=== PATIENT | female | born 1995 | race Caucasian/White ===

== ENCOUNTER 2021-01-19 13:54 | Outpatient (CLI) | payer OTHER ==
[2021-01-19 14:53] VITALS: BP 98/65
--- NOTE | 2021-01-19 14:53 | SLEEP CARE CONSULTATION ---
Information from patient questionnaire entered by Jose Ramon Cabral. I have reviewed and concur with the information entered by Jose Ramon Cabral. This document represents the service I personally performed and the decisions made by me, Tawanna Burgess ARNP. History of Present Illness Service Date and Time: 01/19/2021 1354 Reason for Visit: New patient Chief Complaint: reports: Unrefreshed sleep, Snoring (occasionally), Excessive daytime sleepiness, Observed pauses in breathing, Frequent awakenings at night, Other (waking at night for air, exhaustion during day) Date of Onset: After dental treatment for overbite (~2010) Usual bedtime: Around 2300 Time it takes to fall asleep: ~ 15 min Snores at night: Yes Observed to quit breathing while asleep: Yes Sleeps alone due to snoring: Yes (sometimes) Number of times waking at night: At least 2 Reasons for waking at night: reports: Choking, Snoring, Gasping for air Toss, Turn, or Twitch while sleeping: Yes Recalls having dreams: Yes Usually gets out of bed at: Around 0700 Feels refreshed in the morning: No Morning headache: Yes (4 days a well, dull constant that last couple hours) Sleepy or fatigued during the day: Yes Ever fallen asleep while driving: No Takes day naps: Yes (mostly on weekends) Dreams during day naps: No Prior sleep studies: No Additional HPI information: I had the pleasure of seeing NAUN CARTER today regarding the possibility of her having a sleep disorder. Her current complaints are observed pauses in breathing, waking at night for air and exhaustion during the day. She had some dental work when younger that reduced an overbite and since then she has problems with waking up gasping for air and having daily tiredness. She feels in the last 2 years things have become worse. Her concentration and memory is now being affected. She does not ever feel rested or wake up feeling rested after sleeping. She feels she is waking up frequently at night. Her states she has pauses in breathing and he hears her gasp and choke while she is sleeping. He father has sleep apnea and is treated with a machine. He has told her how much difference it has made for him. She is in the [employer] and does not want it to affect her job. 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 Patient is and lives in [place]. Have you smoked in the past 12 months: No Alcohol use: Yes Alcohol amount and frequency: 1-2 drinks monthly Caffeine use: Yes Caffeine amount and frequency: 1 every other day Family History Family history of sleep disordered breathing: Yes (Father, diagnosed and treated with CPAP) Family Hx Sleep Apnea: Father: Sleep apnea - Treated Allergies and Home Medications Drug allergies reviewed: Yes (NKDA) Home medication list reviewed: Yes Allergy and home medication list: Ibuprofen, prn Review of Systems Weight gain over past 5 years: 3 Cardiovascular: reports: palpitations. denies: high blood pressure Gastrointestinal: denies: heartburn Neurological: reports: headaches. denies: seizure, head trauma Psychiatric: denies: anxiety, depression, mood disorder, claustrophobia Ear/Nose/Throat: reports: nasal congestion, tonsillectomy, wisdom teeth removed Immunologic: reports: allergies to food or environment (pet dander) Physical Exam Blood Pressure: 98/65 Cuff size: wrist Heart Rate: 74 O2 Saturation: 99 Height: 5 ft 6.5 in Weight: 134 lb Body Mass Index: 21.3 BMI Classification: Healthy weight Nostrils: patent to airflow Mouth and throat: narrow oropharynx Soft palate: long Hard palate: normal Uvula visualization: 25% Mallampati Class III Tongue: enlarged in size with teeth lynne on lateral edges Tonsils: absent bilaterally Chin and jaw: normal size and position Neck: normal w/o lymphadenopathy or thyromegaly Heart: regular rate and rhythm Lungs: clear bilaterally Impression and Plan 1. Suspected Obstructive Sleep Apnea-Hypopnea Syndrome, as suggested by a history of irregular snoring, observed cessation of breath while asleep, gasping or choking in sleep, morning headache, frequent awakening during the night, unrefreshed sleep, cognitive impairment, and excessive daytime sleepiness. Narrow oropharynx and obesity are common predisposing factors for obstructive sleep apnea-hypopnea syndrome. I recommend proceeding to polysomnography to confirm the diagnosis and to assess severity. If the patient has significant sleep disordered breathing, a manual CPAP titration study will also be performed to find the optimal treatment pressure. I informed the patient of what the sleep studies involve and after some discussion, obtained agreement to proceed. The pathophysiology of obstructive sleep apnea-hypopnea syndrome was discussed with the patient and health risks of cardiovascular and cerebrovascular disease if not treated. 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 Patient agreed to plan. * Schedule polysomnography +- manual CPAP titration study and return in 1-2 weeks after the study to discuss result and initiate therapy. * Avoid long distance driving or driving when feeling sleepy. * Avoid alcohol, sedative and muscle relaxant around bedtime. * Attempt to lose weight. * Review instructions provided by trained office staff on how to prepare for the sleep study. * Return for follow-up after sleep study completed. Visit Type: In Office Time Spent with Patient (minutes): 30 Provider Statement: I spent 100% of the Face to Face Visit with the patient with greater than 50% spent counseling the patient and coordination of care.
== END 2021-01-19 13:55 | disposition home or self-care (01) ==
LOC: SC 13:54
PROVIDERS: ATTEND Nurse Practitioner Family
DX: G47.10 Hypersomnia, unspecified (principal); R06.81 Apnea, not elsewhere classified; G47.8 Other sleep disorders; R06.83 Snoring; R41.89 Other symptoms and signs involving cognitive functions and awareness; R51.9 Headache, unspecified
CPT/HCPCS: 99203; 99212

== ENCOUNTER 2021-02-04 08:43 | Outpatient (CLI) | payer OTHER ==
--- NOTE | 2021-02-04 09:22 | SLEEP CARE CONSULTATION ---
Information from patient questionnaire entered by Naun Gordon. I have reviewed and concur with the information entered by Naun Gordon. This document represents the service I personally performed and the decisions made by , Tawanna Burgess ARNP. History of Present Illness Service Date and Time: 02/04/2021 0843 Initial [place]red Sleepiness Scale score: 17 (in 2020) Current [place]red Sleepiness Scale score: 17 Additional HPI information: NAUN CARTER returns with spouse for follow up and results of the recently performed polysomnography. The patient was informed of the following findings: no significant sleep disordered breathing with an average AHI of 0.0 and ernestina of 95%. I explained the pathophysiology behind obstructive sleep apnea. Patient does not have sleep apnea and was advised how weight gain could increase the risk of developing sleep apnea in the future. Patient was cautioned about risks of drowsy driving until sleepiness symptoms resolve. Sleep Study - Results Type of Sleep Study: Polysomnography (from [place]) Prior sleep studies: No Polysomnography/Home Sleep Study results: Interpretation: In-laboratory Attended Nocturnal Polysomnography. The patient had reduced sleep efficiency due sleep onset insomnia. The sleep architecture was normal during the second of half of the night. Respiratory monitoring showed no evidence of sleep-disordered breathing (AHI 0.0) or hypoxia (ernestina oxygen saturation of 95.0%). The patient slept adequately in supine position. No audible snore. There was no periodic leg movement of sleep. Cardiac rhythm was normal sinus rhythm. No abnormal behavior (parasomnia) observed during the night. Recommen ations: 1. This is normal in~laboratory polysomnography. Clinical correlation advised. Allergies and Home Medications Home medication list reviewed: Yes (ibuprofen, as needed) Review of Systems Review of systems same as previous: Yes (no changes) Physical Exam Heart Rate: 103 (nervous today) O2 Saturation: 100 Height: 5 ft 6.5 in Weight: 144 lb Body Mass Index: 22.8 BMI Classification: Healthy weight Impression and Plan 1. Suspected Obstructive Sleep Apnea-Hypopnea Syndrome, as suggested by a history of irregular snoring, observed cessation of breath while asleep, gasping or choking in sleep, frequent awakening during the night, unrefreshed sleep, and excessive daytime sleepiness. Patient here for follow up on PSG but felt she did not sleep well that night and it was not a good measurement of her breathing. She feels it may be a better measurement with a HST. She is concerned that the test was greatly affected by her nervousness and inability to rest comfortably on the night of the PSG. Her father had similar results with his study and on his second test was found to have moderate to severe sleep apnea. I recommend proceeding to polysomnography to confirm the diagnosis and to assess severity with an HST. 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 Patient agreed to plan. * Schedule HST and return in 1-2 weeks after the study to discuss result and initiate therapy. * Avoid long distance driving or driving when feeling sleepy. * Avoid alcohol, sedative and muscle relaxant around bedtime. * Maintain a healthy weight * Review instructions provided by trained office staff on how to prepare for the sleep study. * Return for follow-up after sleep study completed. Counseling Topics: Weight control Visit Type: In Office Other Participants: Spouse/Significant Other Time Spent with Patient (minutes): 21 Provider Statement: I spent 100% of the Face to Face Visit with the patient with greater than 50% spent counseling the patient and coordination of care.
== END 2021-02-04 08:44 | disposition home or self-care (01) ==
LOC: SC 08:43
PROVIDERS: ATTEND Nurse Practitioner Family
DX: G47.10 Hypersomnia, unspecified (principal); R06.81 Apnea, not elsewhere classified; G47.8 Other sleep disorders; R06.83 Snoring
CPT/HCPCS: 99212; 99213

== ENCOUNTER 2021-02-12 14:27 | Outpatient (CLI) | payer OTHER | END 2021-02-12 14:28 | disposition home or self-care (01) | LOC: SC 14:27 | PROVIDERS: ATTEND Nurse Practitioner Family | DX: G47.33 Obstructive sleep apnea (adult) (pediatric) (principal); R09.02 Hypoxemia | CPT/HCPCS: 95806 ==

== ENCOUNTER 2021-02-23 11:16 | Outpatient (CLI) | payer OTHER ==
--- NOTE | 2021-02-23 11:44 | SLEEP CARE CONSULTATION ---
Information from patient questionnaire entered by Brianne Gordon. I have reviewed and concur with the information entered by Brianne Gordon. This document represents the service I personally performed and the decisions made by , Tawanna Burgess ARNP. History of Present Illness Service Date and Time: 02/23/2021 1116 Initial [place] Sleepiness Scale score: 17 (in 2020) Current [place] Sleepiness Scale score: 17 Additional HPI information: BRIANNE CARTER returns with spouse for follow up and results of the recently performed home sleep study. I explained the pathophysiology behind obstructive sleep apnea. We then spent qu ite a bit of time discussing different treatment options. For mild obstructive sleep apnea, surgery and oral appliance are alternatives to nasal CPAP therapy but in moderate or severe cases, nasal CPAP is the most effective and reliable treatment. Because apnea is primarily in supine position, then positional management therapy could be effective. I advised patient to sleep on her side until starting CPAP therapy. I reviewed the impact of weight changes on sleep apnea and strongly recommended losing weight. After some discussion, the patient opted to go with the nasal CPAP therapy. Nasal autoCPAP set at 4-15 cmH20 will be ordered with rationale explained. A manual titration study will be ordered if unable to find optimal pressure with office adjustments. I explained how CPAP machine works with sample devices [id number] Dreamstation and Share Some Style [id number] and what to expect when using the machine. Using CPAP every night in order to get used to it was emphasized. Patient advised to put CPAP mask on before getting into bed so as not to fall asleep without CPAP. To assist acclimation to CPAP use, it could also be used for a short time during day while reading or watching TV. The patient was instructed to call the CPAP supplier to discuss any mechanical problem that may occur. If the mask given is uncomfortable or is difficult to keep on through the night even with adjustment, contact the CPAP supplier as many will replace with another mask style if notified before 30 days. If snoring or perceives is not getting enough air or too much air from the machine, notify this office. AAS patient education PAP tips reviewed and given to patient. Patient does not drink alcohol. Patient was cautioned about risks of drowsy driving until sleepiness symptoms resolve. Maria Antonia ent denies drowsy driving. Sleep Study - Results Type of Sleep Study: Home sleep study Prior sleep studies: Yes Year and Where: 2020 - [facility] (negative) Polysomnography/Home Sleep Study results: The quality of the study is good. The length of the study is adequate (> 240 minutes). Please also see the tabulated and graphic data. 1. Obstructive Sleep Apnea-Hypopnea (ICD-10 G47.33), moderate, with an AHI of 28.9/hr and ernestina SaO2 of 85%. During the study, the patient had 171 apneas (171 obstructive, 0 central, 0 mixed) and 15 hypopneas. The longest episode lasted 102.5 seconds. The respiratory events occurred more frequently during supine sleep (supine AHI was 40.1 and non-supine, 14.30). 2. Hypoxemia (ICD-10 R09.02), mild, with the lowest oxygen saturation of 85 % and 2.9 minutes with SaO2 under 90%. Baseline oxygen saturation was normal (Average oxygen saturation was 95%). Allergies and Home Medications Home medication list reviewed: Yes (no changes) Review of Systems Review of systems same as previous: Yes (no changes) Physical Exam Heart Rate: 99 O2 Saturation: 100 Height: 5 ft 6.5 in Weight: 141 lb Body Mass Index: 22.4 BMI Classification: Healthy weight Impression and Plan 1. Obstructive Sleep Apnea-Hypopnea Syndrome, moderate, with lowest oxygen saturation of 85%. Obviously this is the cause of the patients symptoms of unrefreshed sleep, and excessive daytime sleepiness. Positive pressure therapy could benefit her overall health and reduce cardiovascular and cerebrovascular adverse events. As mentioned above, the patient will be started on nasal autoCPAP therapy with pressure set at 4-15 cmH2O. A manual titration study will be completed if unable to find optimal treatment pressure with office adjustments. Compliance guidelines also reviewed. A copy of compliance guidelines will be given for reference at check out. Because the apnea is more severe supine, I instructed to avoid sleeping supine using pillow positioning until able to start CPAP use. * Nasal auto CPAP therapy, pressure at 4-15 cm H2O. * Attempt to lose weight. * Avoid alcohol consumption near bedtime. * Avoid supine sleep until using CPAP. * The patient is again cautioned about driving until sleepiness completely resolves. * Return one month after CPAP obtained. I will assess response to therapy and compliance at that time. Counseling Topics: Weight control Visit Type: In Office Time Spent with Patient (minutes): 20 Provider Statement: I spent 100% of the Face to Face Visit with the patient with greater than 50% spent counseling the patient and coordination of care.
== END 2021-02-23 11:17 | disposition home or self-care (01) ==
LOC: SC 11:16
PROVIDERS: ATTEND Nurse Practitioner Family
DX: G47.33 Obstructive sleep apnea (adult) (pediatric) (principal)
CPT/HCPCS: 99212; 99213

== ENCOUNTER 2021-04-09 11:50 | Outpatient (CLI) | payer OTHER ==
--- NOTE | 2021-04-09 12:45 | SLEEP CARE CONSULTATION ---
Information from patient questionnaire entered by Naun Gordon. I have reviewed and concur with the information entered by Naun Gordon. This document represents the service I personally performed and the decisions made by , Tawanna Burgess ARNP. History of Present Illness Service Date and Time: 04/09/2021 1150 Previous diagnosis: Moderate, Obstructive Sleep Apnea-Hypopnea Syndrome AHI: 28.9 (in 2020) Reason for follow up: other (issues with CPAP, set up 03/11/2021) Equipment type: CPAP Equipment obtained from: Other ([facility]; got initial supplies) Mask style: Nasal (2 previous types) Mask brand: Respironics (Dreamwear) Backup mask available: Yes (other mask) Prior sleep studies: Yes Year and Where: 2020 - [facility]; 2020 - [facility] (PSG- negative) Type of Sleep Study: Home sleep study HPI additional information: NAUN CARTER was diagnosed to have moderate, AHI 28.9, obstructive sleep apnea-hypopnea syndrome and returned today for CPAP therapy use issues follow- up. CPAP Compliance Data - Data Reviewed with Patient Average duration of nightly device use: 4 hr 27 min Compliance rate %: 60 Current pressure setting (cmH2O): 4-15 (mean 5.0, avg 6.8, peak 9.5) Humidity settin Heated hose settin Average residual AHI: 2.0 Average large leak: 0 Subjective Patient concerns: reports: aerophagia, mask discomfort, condensation in mask/hose, dry mouth, nose, throat. denies: air blowing in eyes, mask leak noise, nasal congestion, epistaxis Current pressure setting perceived as: comfortable On therapy, patient: reports: sleeping better (a little). denies: drowsiness while driving Initial [place] Sleepiness Scale score: 17 (in 2020) Current [place] Sleepiness Scale score: 15 Allergies and Home Medications Home medication list reviewed: Yes (Vitamin supplement) Review of Systems Review of systems same as previous: No (low vit D, TSH is elevated) Physical Exam Heart Rate: 89 O2 Saturation: 98 Height: 5 ft 6.5 in Weight: 141 lb Body Mass Index: 22.4 BMI Classification: Healthy weight Impression and Plan 1. Obstructive Sleep Apnea-Hypopnea Syndrome, moderate, with fair treatment compliance and good apnea control. On CPAP therapy, the patient feels she has a little bit better sleep quality but is not more rested overall. Patient has been having multiple issues with CPAP use. Patient states she has been waking up every 1-3 hours and looking at the clock to see if she is having a time on machine. She is trying to reach 4 to 5 hours of compliance since she needs at least 5 hours for her job. She has also had times where she felt a burst of air that caused her not to be able to breathe after she has put on her mask. She has had some aerophagia in the morning with bloating is uncomfortable. She is also had some difficulty with the mask and has changed it out 2-3 times. She is currently using a nasal cushion by [employer] that she used for 1 night and feels this might be the most comfortable so far. She is also had an issue with feeling like she is getting water boarded with drops of water coming into her nose/on her face. She has since completely turned off the humidity as well as the heated hose. Patient states that despite repeated attempts of adjustments, she was still getting condensation in the mask. I advised patient to look at the clock when she wakes up at night and just try to go back to sleep. With this, we would be trying to development of anxieties and frustrations interrupting her sleep. I will also adjust her pressure to 5 to 7 cmH2O to reduce these bursts of air waking her up and the aerophagia. She was advised to continue to try different mask as needed if the current mask is still not comfortable. She was also advised to see if her rooms ambient humidity may be high causing increased condensation since she does not have her humidity or heated hose on. I also advised her to continue to be patient and try to wear her mask nightly to increase the time in the mask for best benefit. I will follow up with her in about 4 weeks to check her initial compliance and see how she is doing with these changes. Patient's apnea severity and rationale for treatment to reduce apnea, improve sleep quality and reduce cardiovascular and cerebrovascular events was reviewed. * Change auto CPAP pressure to 5-7cmH2O * Notify me if snoring with mask or feeling that the pressure is too much or too little * Maintain a healthy weight * Call this office if any problems using CPAP * Return for follow up in 1 month, or sooner if concerns arise Counseling Topics: Weight loss health impact Visit Type: In Office Time Spent with Patient (minutes): 29 Provider Statement: I spent 100% of the Face to Face Visit with the patient with greater than 50% spent counseling the patient and coordination of care.
== END 2021-04-09 11:51 | disposition home or self-care (01) ==
LOC: SC 11:50
PROVIDERS: ATTEND Nurse Practitioner Family
DX: G47.33 Obstructive sleep apnea (adult) (pediatric) (principal)
CPT/HCPCS: 99212; 99213

== ENCOUNTER 2021-05-06 08:29 | Outpatient (CLI) | payer OTHER ==
--- NOTE | 2021-05-06 09:09 | SLEEP CARE CONSULTATION ---
Information from patient questionnaire entered by Naun Gordon. I have reviewed and concur with the information entered by Naun Gordon. This document represents the service I personally performed and the decisions made by , Tawanna Burgess ARNP. History of Present Illness Service Date and Time: 05/06/2021 0829 Previous diagnosis: Moderate, Obstructive Sleep Apnea-Hypopnea Syndrome AHI: 28.9 (in 2020) Reason for follow up: first compliance Equipment type: CPAP Equipment obtained from: Other ([facility]; got initial supplies) Mask style: Nasal (over the nose) Backup mask available: Yes Last cushion change: 2 weeks Prior sleep studies: Yes Year and Where: 2020 - [facility]; 2020 - [facility] (negative poly) Type of Sleep Study: Home sleep study HPI additional information: NAUN CARTER was diagnosed to have moderate, AHI 28.9, obstructive sleep apnea-hypopnea syndrome and returned today for CPAP therapy first compliance follow-up. CPAP Compliance Data - Data Reviewed with Patient Average duration of nightly device use: 5 hr 21 min Compliance rate %: 73.3 (03/17/21-04/15/21)(last 30 - .7) Current pressure setting (cmH2O): 5-7 Humidity settin Heated hose settin Average residual AHI: 2.6 Average large leak: 4 sec Subjective Missed days of use due to: reports: other (use) Patient concerns: reports: aerophagia, mask discomfort, air blowing in eyes, condensation in mask/hose, dry mouth, nose, throat, other (headache, overall discomfort). denies: mask leak noise, nasal congestion, epistaxis Observed to snore while using device: No On therapy, patient: reports: other (not tolerating CPAP and having to sleep longer without it to feel more rested) Initial Robbins Sleepiness Scale score: 17 (in 2020) Current Robbins Sleepiness Scale score: 17 Allergies and Home Medications Home medication list reviewed: Yes (no changes) Review of Systems Review of systems same as previous: No (Evaluation by ENT for JUAN PABLO surgery) Physical Exam Heart Rate: 95 O2 Saturation: 99 Height: 5 ft 6.5 in Weight: 145 lb Body Mass Index: 23.0 BMI Classification: Healthy weight Impression and Plan 1. Obstructive Sleep Apnea-Hypopnea Syndrome, moderate, with fair treatment compliance and good apnea control. On CPAP therapy, the patient has not been able to sleep better and has been requiring more sleep to try and feel rested. She has tried 4 different masks and although the current one fits the best she is not able to tolerate wearing it. She is waking up, taking it off and going back to sleep for hours to try and catch up on her sleep. She spoke with her flight surgeon who referred her to an ENT for consultation. The ENT specialist is evaluating for possible surgery to treat her sleep apnea. The ENT specialist has told her he is confident that she is a good candidate and has ordered more tests to confirm. Patient would like to continue to pursue the surgical treatment but would like to discontinue the CPAP. I reviewed her sleep study and she was less severe sleeping non-supine. I advised her to avoid sleeping on her back, practicing positional therapy, as she continues to pursue the surgical options. Thus we can control her apneas as much as possible in the meantime. 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 We will discontinue CPAP and patient will do positional therapy to control her apneas as much as possible. She can follow-up here as needed. Patient's apnea severity and rationale for treatment to reduce apnea, improve sleep quality and reduce cardiovascular and cerebrovascular events was reviewed. * Discontinue CPAP * Positional therapy * Follow up with ENT for surgical evaluation * Maintain a healthy weight * Return for follow as needed Counseling Topics: Weight control Visit Type: In Office Time Spent with Patient (minutes): 28 Provider Statement: I spent 100% of the Face to Face Visit with the patient with greater than 50% spent counseling the patient and coordination of care.
== END 2021-05-06 08:30 | disposition home or self-care (01) ==
LOC: SC 08:29
PROVIDERS: ATTEND Nurse Practitioner Family
DX: G47.33 Obstructive sleep apnea (adult) (pediatric) (principal)
CPT/HCPCS: 99212; 99213

== ENCOUNTER 2023-11-10 13:48 | Outpatient (CLI) | payer OTHER | END 2023-11-10 13:49 | disposition home or self-care (01) | LOC: DI 13:48 | PROVIDERS: ATTEND Preventive Medicine Aerospace Medicine | DX: O99.891 Other specified diseases and conditions complicating pregnancy (principal); R00.2 Palpitations; Z3A.10 10 weeks gestation of pregnancy | CPT/HCPCS: 93307 ==

== ENCOUNTER 2023-11-15 20:40 | Emergency (ER) | payer OTHER ==
[2023-11-15 21:52] LABS: BASOPHILS # (AUTO) 0.1 10^3/uL (0.0-0.1); BASOPHILS % (AUTO) 0.7 %; EOSINOPHILS # (AUTO) 0.1 10^3/uL (0.0-0.7); EOSINOPHILS % (AUTO) 1.3 %; HCT - HEMATOCRIT 37.1 % (37.0-47.0); HGB - HEMOGLOBIN 12.4 g/dL (12.0-16.0); LYMPHOCYTES # (AUTO) 1.5 10^3/uL (1.5-3.5); LYMPHOCYTES % (AUTO) 22.5 %; MEAN CORPUSCULAR HEMOGLOBIN 30.2 pg (27.0-31.0); MEAN CORPUSCULAR HGB CONC 33.4 g/dL (32.0-36.0); MEAN CORPUSCULAR VOLUME 90.3 fL (81.0-99.0); MEAN PLATELET VOLUME 9.3 fL (7.9-10.8); MONOCYTES # (AUTO) 0.6 10^3/uL (0.0-1.0); MONOCYTES % (AUTO) 8.7 %; NEUTROPHILS # (AUTO) 4.5 10^3/uL (1.5-6.6); NEUTROPHILS % (AUTO) 66.5 %; PLT - PLATELET COUNT 249 10^3/uL (130-450); RED BLOOD COUNT 4.11 10^6/uL (4.20-5.40); RED CELL DISTRIBUTION WIDTH 12.7 % (12.0-15.0); WHITE BLOOD COUNT 6.8 x10^3/uL (4.8-10.8)
[2023-11-15 22:03] LABS: ALBUMIN 4.5 g/dL (3.2-5.5); ALBUMIN/GLOBULIN RATIO 1.6 (1.0-2.2); BILIRUBIN,TOTAL 0.5 mg/dL (0.2-1.0); CALCIUM 9.1 mg/dL (8.5-10.3); CREATININE 0.5 mg/dL (0.6-1.3); POTASSIUM 3.5 mmol/L (3.5-4.5); TOTAL PROTEIN 7.3 g/dL (6.4-8.9)
[2023-11-15 22:07] VITALS: O2SAT 100
[2023-11-15 22:21] LABS: BILIRUBIN,URINE NEGATIVE (NEGATIVE); GLUCOSE, URINE (UA) NEGATIVE (NEGATIVE); KETONES,URINE (UA) NEGATIVE (NEGATIVE); LEUKOCYTE ESTERASE, URINE NEGATIVE (NEGATIVE); NITRITE,URINE NEGATIVE (NEGATIVE); OCCULT BLOOD,URINE TRACE-LYSE (NEGATIVE); PROTEIN,URINE NEGATIVE (NEGATIVE); UROBILINOGEN,URINE 0.2 (NORMAL) E.U./dL (NORMAL)
[2023-11-15 22:23] LABS: CLARITY,URINE CLEAR (CLEAR); HCG UR QUAL POSITIVE
--- NOTE | 2023-11-15 23:17 | Ultrasound Report ---
PROCEDURE: OB 1st Trimester w/TV INDICATIONS: 10 weeks preg, vag bleed OUTSIDE/PRIOR DATING DATA: Last menstrual period (LMP): 09/04/2023. LMP-based estimated date of delivery (DARIELA): 06/11/2024. First dating scan (date and location): n.a. Estimated date of delivery (DARIELA) from first dating scan: n.a. TECHNIQUE: Real-time scanning was performed of the fetus and maternal pelvic organs, with image documentation. Endovaginal scanning was also performed to better visualize the fetus and maternal ovaries. COMPARISON: None. FINDINGS: Intrauterine gestational sac present. Embryo: There is a pole measuring 2.01 cm, corresponding to ultrasound DARIELA 8 weeks 4 days, dis cordant with clinical dating (10 weeks 2 days). There is absence of heart tone. Other: No perigestational fluid collection. Measurement variability in dating: +/- 4 weeks by LMP, +/- 7 days by mean sac diameter (use before 6 weeks gestation if crown-rump length not able to be measured), +/- 5 days by crown-rump length (6-12 weeks gestation). Maternal organs: Ovaries appear within normal limits. Corpus luteal cysts are noted bilaterally. IMPRESSION: 1. An intrauterine gestational sac is present with a pole. The estimated gestational age is 8 w eeks 4 days. No cardiac activity is present. The ultrasound findings are highly suspicious for first trimester failure. Recommend clinical correlation. Reviewed by: Bradly Gay MD on 11/15/2023 11:16 PM PST Approved by: Bradly Gay MD on 11/15/2023 11:16 PM PST Station ID: [id number]
--- NOTE | 2023-11-15 23:19 | ED Physician Documentation ---
History of Present Illness - Stated complaint Stated Complaint: BLEEDING/10 WEEKS PREG - Chief complaint Chief Complaint: Abd Pain - History obtained from History obtained from: Patient - Additonal information Additional information: 27yF at 10wga presents to the ED with vaginal spotting X 1 day. denies abdominal pain, n/v, urinary sx, vision changes. PD PAST MEDICAL HISTORY - Past Medical History Past Medical History: No Cardiovascular: None Respiratory: None Neuro: None Endocrine/Autoimmune: None GI: None HOSPICE ART THERAPIST: None : None HEENT: None Psych: None Musculoskeletal: None Derm: None - Past Surgical History Past Surgical History: Yes HEENT: Tonsil/Adenoidectomy - Present Medications Home Medications: Ambulatory Orders Medication Instructions Recorded Confirmed No Known Home Medications 11/15/23 11/15/23 - Allergies Allergies/Adverse Reactions: Allergies Allergy/AdvReac Type Severity Reaction Status Date / Time No Known Drug Allergies Allergy Verified 11/15/23 22:02 - Social History Does the pt smoke?: No Smoking Status: Never smoker Does the pt drink ETOH?: No Does the pt have substance abuse?: No - Immunizations Immunizations are current?: Yes - POLST Patient has POLST: No PD ED PE NORMAL - Vitals Vital signs reviewed: Yes - General General: Alert and oriented X 3, No acute distress, Well developed/nourished - HEENT HEENT: Atraumatic, PERRL, EOMI - Neck Neck: Supple, no meningeal sign - Cardiac Cardiac: RRR - Respiratory Respiratory: No respiratory distress, Clear bilaterally - Abdomen Abdomen: Non tender, Non distended - Derm Derm: Normal color, Warm and dry Results - Vitals Vitals: Vital Signs - 24 hr 11/15/23 21:53 Temperature 36.4 C L Heart Rate 76 Respiratory 17 Rate Blood Pressure 119/65 O2 Saturation 100 Oxygen O2 Source Room air - Labs Labs: Laboratory Tests 11/15/23 11/15/23 11/15/23 21:37 21:37 21:37 WBC 6.8 RBC 4.11 L Hgb 12.4 Hct 37.1 MCV 90.3 MCH 30.2 MCHC 33.4 RDW 12.7 Plt Count 249 MPV 9.3 Neut # (Auto) 4.5 Lymph # (Auto) 1.5 Grant # (Auto) 0.6 Eos # (Auto) 0.1 Baso # (Auto) 0.1 Absolute Nucleated RBC 0.00 Nucleated RBC % 0.0 Sodium 136 Potassium 3.5 Chloride 106 Carbon Dioxide 22 Anion Gap 8.0 BUN 6 Creatinine 0.5 L Estimated GFR (MDRD) 146 Glucose 103 Calcium 9.1 Total Bilirubin 0.5 AST 13 ALT 9 L Alkaline Phosphatase 50 Total Protein 7.3 Albumin 4.5 Globulin 2.8 Albumin/Globulin Ratio 1.6 Lipase 16 Beta HCG, Quant 25139.3 Urine Color Urine Clarity Urine pH Ur Specific [place] Urine Protein Urine Glucose (UA) Urine Ketones Urine Occult Blood Urine Nitrite Urine Bilirubin Urine Urobilinogen Ur Leukocyte Esterase Ur Microscopic Review Urine Culture Comments Urine HCG, Qual Blood Type A POSITIVE Blood Type Recheck 11/15/23 11/15/23 11/15/23 22:00 22:00 22:40 WBC RBC Hgb Hct MCV MCH MCHC RDW Plt Count MPV Neut # (Auto) Lymph # (Auto) Grant # (Auto) Eos # (Auto) Baso # (Auto) Absolute Nucleated RBC Nucleated RBC % Sodium Potassium Chloride Carbon Dioxide Anion Gap BUN Creatinine Estimated GFR (MDRD) Glucose Calcium Total Bilirubin AST ALT Alkaline Phosphatase Total Protein Albumin Globulin Albumin/Globulin Ratio Lipase Beta HCG, Quant Urine Color LIGHT YELLOW Urine Clarity CLEAR Urine pH 6.0 Ur Specific [place] <=1.005 Urine Protein NEGATIVE Urine Glucose (UA) NEGATIVE Urine Ketones NEGATIVE Urine Occult Blood TRACE-LYSE Urine Nitrite NEGATIVE Urine Bilirubin NEGATIVE Urine Urobilinogen 0.2 (NORMAL) Ur Leukocyte Esterase NEGATIVE Ur Microscopic Review NOT INDICATED Urine Culture Comments NOT INDICATED Urine HCG, Qual POSITIVE Blood Type Blood Type Recheck A POSITIVE PD Medical Decision Making - ED course ED course: 27yF at 10 wga presents with vaginal spotting, found to have missed on u/s. d/w train electronic technician ob provider Dr. Bullard who recommends outpatient f/u tomorrow if little bleeding. She would offer inpatient d and c if heavy vaginal bleeding but since patient is just spotting she elected to f/u outpatient. return precautions given. Departure - Departure Disposition: 01 Home, Self Care Clinical Impression: Vaginal bleeding affecting early , Missed Condition: Stable Instructions: ED Miscarriage Incom Comments: You were seen in the emergency department for medical evaluation of vaginal bleeding. The heart beat is not present on ultrasound, indicating you are having a miscarriage. Please follow-up with bookmobile driver tomorrow and return to the emergency department if you have any new or worsening symptoms or other concerns.
[2023-11-16 00:13] VITALS: BP 115/65
== END 2023-11-16 00:06 | disposition home or self-care (01) ==
LOC: ED 20:40
DX: O02.1 Missed abortion (principal); Z3A.00 Weeks of gestation of pregnancy not specified
CPT/HCPCS: 36415; 80053; 81001; 81003; 81025; 83690; 84702; 85025; 86900; 86901; 87086; 99283; 99284

== ENCOUNTER 2023-12-19 07:52 | Outpatient (CLI) | payer OTHER ==
--- NOTE | 2023-12-19 08:23 | CARDIAC PROCEDURE NOTE ---
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 Significant Medical History: Brianne is referred for a treadmill stress echocardiogram today, to assess her exercise intolerance that began to decline subtly approximately 18 to 24 months ago. She has a past medical history that includes GERD, ADHD previously on Adderall (quit 6 months ago without apparent change in her cardiovascular symptoms) and obstructive sleep apnea (not treated with CPAP currently). She reports that she had onset of mild symptoms that started with a cough after experiencing COVID, with progressive experience of palpitations with exercise, associated with shortness of breath and "twinges" of chest discomfort. Her concerns accelerated with the sudden of her father in fall 2022 (see below). Some of her attempts to run on the treadmill have been associated with tunnel vision, feeling like her heart is skipping beats, and progressive lightheadedness to the point that she has essentially had to decrease the intensity of her exercise routine (initially almost completely, with some improvement in tolerance recently). She remains on active duty status in [employer] 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 She became in August and unfortunately had a miscarriage in October, but does not feel that either while or post- that she has had change in her symptom complex. She has already been evaluated with a resting echocardiogram performed here about a month ago, that was entirely normal in all aspects. Cardiac Risk Factors: Positive for family history of "heart disease" (father with recent sudden at 59, autopsy revealed "enlarged heart" but patient unaware of more specific diagnosis; she believes her maternal grandmother also has an unspecified heart condition); negative for hypertension, diabetes, hyperlipidemia and tobacco smoking. Type of Stress Test: ETT with Echocardiography Procedure: -Exercise Treadmill Test- After signing informed consent, the patient underwent echo imaging at rest and then performed treadmill exercise using a Earle protocol. The patient exercised for 10 minutes 9 seconds and achieved a peak heart rate of 174 (91 percent predicted maximum heart rate for age), and an estimated workload of 12 METS. The test was terminated due to fatigue/shortness of breath. Resting heart rate: 82 Peak heart rate: 174 Normal response to exercise. Resting BP: 110/67 Peak BP: 159/61 Normal response of systolic and diastolic BPs to exercise. Room air oxygen saturation remained between 95-98% throughout. Rhythm during exercise: Sinus rhythm throughout, with occasional isolated PVCs (8 total recorded). Symptoms: She described very mild lightheadedness during exercise, nowhere near as severe as she has experienced while exercising at times in the past and attributed by her to several hours of fasting prior to the test. She also experienced some palpitations during early Recovery, at a time (00:35) when her EKG showed isolated PVCs. She experienced no chest pressure/discomfort, undue shortness of breath or major lightheadedness during the study. EKG at rest showed normal sinus rhythm with normal QRS axis and morphologies and (when standing at rest) minor resting ST depression (less than 0.5 mm) with an abnormal T wave axis. EKG at peak stress showed further ST depression below the abnormal baseline, to a level that meets EKG diagnostic criteria for ischemia, but specificity is reduced due to resting abnormalities. In Recovery HR and BP decreased rapidly/normally to near resting levels (HR 103, BP 119/54 at 7:00). Echo imaging, performed at rest and with stress, will be reported separately. IDeuce MD, was present throughout this treadmill stress study and supervised it in its entirety. Summary: 1) Exercise tolerance slightly above average for age as evidenced by JAKE of -3%. 2) Abnormal resting EKG. 3) Adequate level of exercise was achieved on this treadmill stress test. 4) Normal BP response to exercise. 5) Borderline ischemic changes by EKG criteria were seen at peak stress. 6) Echo image interpretation reveals normal left ventricular size, wall thickness and systolic function, with appropriate hyperdynamic augmentation of all segments with exercise, indicating no evidence of prior infarct or inducible ischemia. No significant valvular abnormality or elevation of estimated pulmonary artery systolic pressure seen on screening study. See separate report for more details. Conclusions and Recommendations: 1) Overall this is a very reassuring treadmill stress echocardiogram study, based on the patient's exercise time, heart rate and blood pressure responses, lack of symptoms and no abnormalities seen on resting- and stress-associated echo images. Her EKG response is likely non-diagnostic, given resting ST abnormalities and her female sex. Given her recent improvement in exercise capacity there should be no limitation to her pursuing further vigorous exercise moving forward. 2) Because she did experience modestly symptomatic palpitations in early Recovery, at a time when isolated PVCs were present, it may be reasonable to further assess her rhythm over a more extensive interval with ambulatory EKG monitoring. She could be referred for a 7-14 day "CAM patch" monitor that is placed in the [facility]'s MAC clinic.
== END 2023-12-19 07:53 | disposition home or self-care (01) ==
LOC: DI 07:52
PROVIDERS: ATTEND Preventive Medicine Aerospace Medicine
DX: R00.2 Palpitations (principal); R06.09 Other forms of dyspnea; R42 Dizziness and giddiness; H53.489 Generalized contraction of visual field, unspecified eye; G47.33 Obstructive sleep apnea (adult) (pediatric); Z82.49 Family history of ischemic heart disease and other diseases of the circulatory system
CPT/HCPCS: 93350

== ENCOUNTER 2024-01-18 15:33 | Emergency (ER) | payer OTHER ==
[2024-01-18 15:52] VITALS: BP 160/84; O2SAT 100
--- NOTE | 2024-01-18 16:29 | ED Physician Documentation ---
PD HPI FEMALE - Stated complaint Stated Complaint: PX - Chief complaint Chief Complaint: Abd Pain - History obtained from History obtained from: Patient - History of Present Illness Timing - duration: Weeks (Currently with couple of weeks some vaginal spotting and bleeding and some increasing discharge. Having increased cramping in the last several days in particular. No dysuria.), Months (Initially with a spontaneous miscarriage in early first trimester which occurred in October, 2 months ago.) Timing - details: Waxing and waning PD PAST MEDICAL HISTORY - Past Medical History Cardiovascular: None Respiratory: None Neuro: None Endocrine/Autoimmune: None GI: None SAW STRAIGHTENER: None : None HEENT: None Psych: None Musculoskeletal: None Derm: None - Past Surgical History Past Surgical History: Yes HEENT: Tonsil/Adenoidectomy - Present Medications Home Medications: Ambulatory Orders Medication Instructions Recorded Confirmed No Known Home Medications 11/15/23 01/18/24 - Allergies Allergies/Adverse Reactions: Allergies Allergy/AdvReac Type Severity Reaction Status Date / Time No Known Drug Allergies Allergy Verified 01/18/24 16:38 - Social History Does the pt smoke?: No Smoking Status: Never smoker Does the pt drink ETOH?: No Does the pt have substance abuse?: No - Immunizations Immunizations are current?: Yes - POLST Patient has POLST: No PD ED PE NORMAL - Vitals Vital signs reviewed: Yes - General General: Alert and oriented X 3, No acute distress, Well developed/nourished - Cardiac Cardiac: RRR, No murmur - Respiratory Respiratory: No respiratory distress, Clear bilaterally - Abdomen Abdomen: Normal bowel sounds, Soft, Non distended, No organomegaly, Other Results - Vitals Vitals: Vital Signs - 24 hr 01/18/24 15:44 Temperature 36.8 C Heart Rate 78 Respiratory 16 Rate Blood Pressure 160/84 H O2 Saturation 100 Oxygen O2 Source Room air - Labs Labs: Laboratory Tests 01/18/24 01/18/24 17:05 17:13 Urine Color YELLOW Urine Clarity CLEAR Urine pH 7.5 Ur Specific [place] 1.010 Urine Protein NEGATIVE Urine Glucose (UA) NEGATIVE Urine Ketones NEGATIVE Urine Occult Blood MODERATE H Urine Nitrite NEGATIVE Urine Bilirubin NEGATIVE Urine Urobilinogen 0.2 (NORMAL) Ur Leukocyte Esterase NEGATIVE Urine RBC 0-5 Urine WBC 0-3 Ur Squamous Epith Cells RARE Squamous Urine Bacteria None Seen Ur Microscopic Review INDICATED Urine Culture Comments NOT INDICATED Urine HCG, Qual NEGATIVE PD Medical Decision Making - ED course Complexity details: considered differential, d/w patient ED course: The patient had had a spontaneous miscarriage in October with her first in the early first trimester. She had approximately 3 weeks of persisting spotting and bleeding with some cramps but subsequently stopped. She was without any vaginal bleeding for approximately 2 or 3 weeks and then had several days of cramps and mild bleeding that she thought was her next period. This stopped after about 5 days but then started again about a week after. It is continued with some spotting now the past week or 2 with increased amount in the last 4 to 5 days. She is also noticing some yellowish faint discharge vaginally. She called her SOFTWARE TESTER who is in [facility] [place] and they recommended she come to the ER for evaluation. She denies fever or chills. No back pain. No dysuria. We are checking a urine test which initially is normal and her test is negative. She was given vaginal swabs to obtain screening tests for BV/yeast as well as STIs. We are getting a pelvic ultrasound to evaluate for ovarian cysts or other structural abnormalities. At this point 2 months out from her miscarriage with a likely. In between, I think would be less likely to have any retained products. Other consideration would be an STI or BV. Based on her test results, she can contact her SOFTWARE TESTER or we can recommend treatment such as a OCP or such. Departure - Departure Forms: PCP List
[2024-01-18 17:17] LABS: BILIRUBIN,URINE NEGATIVE (NEGATIVE); GLUCOSE, URINE (UA) NEGATIVE (NEGATIVE); KETONES,URINE (UA) NEGATIVE (NEGATIVE); LEUKOCYTE ESTERASE, URINE NEGATIVE (NEGATIVE); NITRITE,URINE NEGATIVE (NEGATIVE); OCCULT BLOOD,URINE MODERATE (NEGATIVE); PH,URINE 7.5 PH (5.0-7.5); PROTEIN,URINE NEGATIVE (NEGATIVE); UROBILINOGEN,URINE 0.2 (NORMAL) E.U./dL (NORMAL)
[2024-01-18] MEDS: ACETAMINOPHEN 500 MG TABLET PO STA (17:19)
[2024-01-18 17:23] LABS: CLARITY,URINE CLEAR (CLEAR)
[2024-01-18 17:32] LABS: RBC,URINE 0-5 /HPF (0-5); SQUAMOUS EPITHELIAL CELL,UR RARE Squamous (<= Few); WBC,URINE 0-3 /HPF (0-5)
[2024-01-18 17:33] LABS: BACTERIA,URINE None Seen /HPF (None Seen)
[2024-01-18 17:41] LABS: HCG UR QUAL NEGATIVE
[2024-01-18 20:04] LABS: BACTERIAL VAGINOSIS DNA NEGATIVE (NEGATIVE); CANDIDA GLABRATA DNA NEGATIVE (NEGATIVE); CANDIDA GROUP DNA NEGATIVE (NEGATIVE); CANDIDA KRUSEI DNA NEGATIVE (NEGATIVE); TRICHOMONAS VAGINALIS DNA NEGATIVE (NEGATIVE)
--- NOTE | 2024-01-18 20:05 | Ultrasound Report ---
PROCEDURE: Pelvic w/Doppler Complete INDICATIONS: pelvic pain, spotting, post miscarriage 2 mon ago TECHNIQUE: Real-time transabdominal scanning was performed of the pelvic organs, with image documentation. COMPARISON: None FINDINGS: Uterus: Uterus is anteverted and normal in size at 6.2 x 2.6 x 3.9 cm. The myometrium is homogeneou s. The endometrium measures 6.3 mm in combined thickness. No visible retained products of conceptio n. No abnormal vascularity in the uterus. Ovaries: The right ovary measures 4.6 x 2.9 x 4.9 cm, with a calculated ovarian volume of 34.2 cc. The left ovary measures 3.7 x 2.0 x 3.7 cm, with a calculated ovarian volume of 14.6 cc. The ovaries have a normal sonographic appearance. There are several follicles in each ovary, but not greater th an 12. There is normal blood flow in each ovary. No adnexal masses are seen. No cystic lesions measu ring greater than 3 cm. Other: No free pelvic fluid. IMPRESSION: Normal pelvic ultrasound. Preliminary results given by the chalk machine operator to the ordering provider immediately following the study . Reviewed by: Melissa Trevino MD on 01/18/2024 8:04 PM PDT Approved by: Melissa Trevino MD on 01/18/2024 8:04 PM PDT Station ID: [id number]
[2024-01-18 23:11] LABS: CHLAMYDIA TRACHOMATIS DNA NEGATIVE (NEGATIVE); NEISSERIA GONORRHOEAE DNA NEGATIVE (NEGATIVE)
== END 2024-01-18 18:51 | disposition home or self-care (01) ==
LOC: ED 15:33
DX: N89.8 Other specified noninflammatory disorders of vagina (principal)
CPT/HCPCS: 76856; 81001; 81025; 81514; 87491; 87591; 93975; 99283; 99284; A9270; 81003; 87086; 87661